=== PATIENT | female | born 1970 | race Two or more races ===

== ENCOUNTER 2021-07-31 09:30 | Inpatient (IN) | payer OTHER ==
[~2021-07-31] VITALS: Ht 167.6 cm; Wt 78.0 kg
[~2021-07-31 09:30] MED LIST: DESPEC-DM TABL1 EACH PO; LEVAQUIN750 MG PO; PRILOSEC40 MG
[2021-07-31] MEDS ORDERED: PROSOM PO (12:11)
[2021-08-03] MEDS ORDERED: FAMOTIDINE40 MG (13:58)
[2021-08-03] MEDS ORDERED: DICLOFENAC POTA50 MG (13:58)
[2021-08-03] MEDS ORDERED: PREGABALIN75 MG (13:58)
[2021-08-03] MEDS ORDERED: ESTAZOLAM2 MG (13:58)
[2021-08-03] MEDS ORDERED: CLORAZEPATE DI7.5 MG (13:58)
[2021-08-03] MEDS ORDERED: FERROUS SULFAT325 MG (13:58)
[2021-08-03] MEDS ORDERED: SERTRALINE HCL100 MG (13:59)
== END 2021-08-04 11:36 | disposition home or self-care (01) | DRG 743 ==
LOC: O/R 08-03 07:05 → SURH 08-03 09:30 → OB/GYN 08-03 22:01
PROVIDERS: ADMIT Obstetrics & Gynecology Gynecologic Oncology; ATTEND Obstetrics & Gynecology Gynecologic Oncology
PROC: 0UT24ZZ Resection of Bilateral Ovaries, Percutaneous Endoscopic Approach (ICD-10-PCS; 2021-08-03)
PROC: 0UT74ZZ Resection of Bilateral Fallopian Tubes, Percutaneous Endoscopic Approach (ICD-10-PCS; 2021-08-03)
PROC: 07BC4ZZ Excision of Pelvis Lymphatic, Percutaneous Endoscopic Approach (ICD-10-PCS; 2021-08-03)
PROC: 0UT94ZZ Resection of Uterus, Percutaneous Endoscopic Approach (ICD-10-PCS; principal; 2021-08-03 17:45)
DX: N80.0 Endometriosis of uterus (principal); N80.1 Endometriosis of ovary; D25.1 Intramural leiomyoma of uterus; N72 Inflammatory disease of cervix uteri; D25.2 Subserosal leiomyoma of uterus; N83.312 Acquired atrophy of left ovary; N83.311 Acquired atrophy of right ovary